=== PATIENT | female | born 2000 | race Caucasian/White ===

== ENCOUNTER 2021-05-30 16:35 | Emergency (ER) | payer OTHER ==
[~2021-05-30] VITALS: Ht 170.2 cm; Wt 56.7 kg
[2021-05-30 16:36] VITALS: BP 111/80
[2021-05-30] MEDS ORDERED: AMOX/CLAV 875/125MG TAB PO ONE ×2 (17:45→18:00)
[2021-05-30] MEDS ORDERED: AMOX-429 PO (17:46)
[2021-05-30] MEDS ORDERED: BACITRACIN 28.4 GM OINT TP SCH (18:00)
== END 2021-05-30 17:51 | disposition home or self-care (01) ==
LOC: EDH 16:35
DX: S61.552A Open bite of left wrist, initial encounter (principal); W54.0XXA Bitten by dog, initial encounter; Y93.89 Activity, other specified; Y92.89 Other specified places as the place of occurrence of the external cause; Y99.8 Other external cause status